=== PATIENT | male | born 1990 | race Caucasian/White ===

== ENCOUNTER → 2017-02-25 | Outpatient (CLI) | payer OTHER ==
[~2017-02-25] MED LIST: FIBE1CHW PO; GADAVIST IV PRN; GLAT1INJ INJ; MULT-506 PO
--- NOTE | 2017-02-25 20:26 | DIAGNOSTIC IMAGING REPORT ---
Brain MRI WITH AND WITHOUT CONTRAST HISTORY: Multiple sclerosis, NEW ONSET RIGHT ARM NUMBNESS TECHNIQUE: Multiplanar multisequence MRI of the brain was performed both before and after the intravenous administration of contrast. COMPARISON STUDY: Brain MRI 03/09/2016. FINDINGS: There again noted multiple scattered white matter plaques seen within the supratentorial and infratentorial brain most pronounced within the right parietal periventricular location. These are not significantly changed compared to the prior study. The majority areas of enhancement seen on the prior study have resolved. However, there are few new foci of enhancement seen within the right parietal lobe white matter plaques and a single uptake foci of new enhancement seen within the left cerebellar hemisphere. These are consistent with areas of active demyelination. There is no mass, hematoma, midline shift, acute infarct. Paranasal sinuses and mastoid air cells are clear. IMPRESSION: No significant change in the multiple scattered white matter plaques consistent with the patient's history of multiple sclerosis. There are few new foci of enhancement within the right parietal lobe and left cerebellar hemisphere consistent with active demyelination. Electronically signed by: Norm Cruz M.D. 02/25/2017 8:24 PM Dictated Date/Time: 02/25/2017 8:17 PM
--- NOTE | 2017-02-25 20:50 | DIAGNOSTIC IMAGING REPORT ---
CERVICAL SPINE MRI WITH AND WITHOUT CONTRAST HISTORY: Multiple sclerosis. Arm and hand numbness. TECHNIQUE: Multiplanar multisequence MRI of the cervical spine was performed both before and after the use of intravenous contrast. COMPARISON STUDY: Cervical spine MRI 03/10/2016. FINDINGS: There again noted multiple large areas of T2 signal abnormality throughout the cervical spinal cord from the C2-C7 level. The dominant 4 cm lesion located at the C3-C4 level demonstrates decreased expansion of the cord. Therefore, this is slightly improved. There is also a new 5 mm focus of T2 signal abnormality within the upper thoracic spinal cord at the T1-T2 disc space level. The peripheral enhancement at the dominant lesion within the upper cervical spinal cord has resolved. No new areas of enhancement at identified. Alignment and curvature intact. The disc spaces are preserved. Tiny focal central annular tear at C6-C7. No disc herniations. C2-C3: No significant central canal or neural foraminal narrowing. C3-C4: No significant central canal or neural foraminal narrowing. C4-C5: No significant central canal or neural foraminal narrowing. C5-C6: No significant central canal or neural foraminal narrowing. C6-C7: No significant central canal or neural foraminal narrowing. C7-T1: No significant central canal or neural foraminal narrowing. IMPRESSION: Overall, mixed response compared to the prior study. The dominant lesion located at the C3-C4 level demonstrates decreased expansion of the cord with resolution of the enhancement. Therefore, this is consistent with improvement. The remaining white matter plaques within the cervical spinal cord remain stable. There is a new 5 mm white matter plaque at the T1-T2 level of the spinal cord. Electronically signed by: Norm Cruz M.D. 02/25/2017 8:48 PM Dictated Date/Time: 02/25/2017 8:41 PM
== END | disposition home or self-care (01) ==
LOC: C.MRI 18:08
PROVIDERS: ATTEND Psychiatry & Neurology Neurology
DX: G35 Multiple sclerosis (principal); G37.9 Demyelinating disease of central nervous system, unspecified

== ENCOUNTER → 2017-10-23 | Outpatient (CLI) | payer OTHER ==
[~2017-10-23] MED LIST changes: -GADAVIST IV PRN
[2017-10-23 12:59] LABS: BASO % 0.3 %; BASO ABS # 0.03 K/uL (0-0.2); EOS % 1.1 %; EOS ABS # 0.13 K/uL (0-0.5); HEMATOCRIT 44.9 % (42-52); HEMOGLOBIN 15.4 g/dL (14.0-18.0); IG# 0.02 K/uL (0.00-0.02); MEAN CELL VOLUME 85.7 fL (80-100); MEAN CORPUSCULAR HEMOGLOBIN 29.4 pg (25-34); MEAN CORPUSCULAR HGB CONC 34.3 g/dl (32-36); MEAN PLATELET VOLUME 9.3 fL (7.4-10.4); MONO % 9.2 %; MONO ABS # 1.08 K/uL (0.11-0.59); NEUT % 77.2 %; NEUT ABS # 9.05 K/uL (1.4-6.5); PLATELET COUNT 252 K/uL (130-400); RED CELL DISTRIBUTION WIDTH CV 13.2 % (11.5-14.5); RED CELL DISTRIBUTION WIDTH SD 41.7 fL (36.4-46.3); WHITE BLOOD COUNT 11.71 K/uL (4.8-10.8)
[2017-10-23 13:57] LABS: ALBUMIN 4.1 gm/dl (3.4-5.0); ALT/SGPT 28 U/L (12-78); AST/SGOT 18 U/L (15-37); BLOOD UREA NITROGEN 12 mg/dl (7-18); CARBON DIOXIDE 29 mmol/L (21-32); CREATININE 0.96 mg/dl (0.60-1.40); GLUCOSE 91 mg/dl (70-99); POTASSIUM 3.9 mmol/L (3.5-5.1); SODIUM 137 mmol/L (136-145)
[2017-10-23 14:01] LABS: ALKALINE PHOSPHATASE 128 U/L (45-117); TOTAL PROTEIN 8.2 gm/dl (6.4-8.2)
== END | disposition home or self-care (01) ==
LOC: C.LABPVFM 10:15
PROVIDERS: ATTEND Family Medicine
DX: R39.11 Hesitancy of micturition (principal)

== ENCOUNTER 2018-02-20 19:07 | Emergency (ER) | payer OTHER ==
[~2018-02-20] VITALS: Ht 182.9 cm; Wt 106.6 kg
[2018-02-20] MEDS ORDERED: ACETAMINOPHEN 500 MG TAB PO STA (19:11)
[2018-02-20 19:13] VITALS: TEMP 36.8; Ht 182.9 cm; Wt 106.6 kg
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
--- NOTE | 2018-02-20 20:27 | DIAGNOSTIC IMAGING REPORT ---
L HAND MIN 3 VIEWS ROUTINE CLINICAL HISTORY: Left third finger pain COMPARISON: None. DISCUSSION: No fractures or dislocations are visualized. No radiopaque foreign bodies are evident. There are no erosive changes. IMPRESSION: No bony abnormalities identified. Electronically signed by: Yonathan Abel M.D. 02/20/2018 8:25 PM Dictated Date/Time: 02/20/2018 8:25 PM
[2018-02-20 20:59] VITALS: BP 141/86; PULSE 90; O2SAT 96
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
== END 2018-02-20 21:00 | disposition home or self-care (01) ==
LOC: EDBD 19:07 → C.EDC 19:10
DX: S06.0X0A Concussion without loss of consciousness, initial encounter (principal); S60.222A Contusion of left hand, initial encounter; T74.11XA Adult physical abuse, confirmed, initial encounter; Y04.2XXA Assault by strike against or bumped into by another person, initial encounter; R51 Headache; G35 Multiple sclerosis

== ENCOUNTER → 2018-04-30 | Outpatient (CLI) | payer OTHER ==
[2018-04-30 13:09] LABS: HEMOGLOBIN A1C 5.5 % (4.5-5.6)
== END | disposition home or self-care (01) ==
LOC: C.LABPVFM 10:58
PROVIDERS: ATTEND Urology
DX: R68.82 Decreased libido (principal); R39.11 Hesitancy of micturition